=== PATIENT | male | born 1965 | race Caucasian/White ===

== ENCOUNTER 2019-10-18 16:22 | Observation (INO) | payer BC, OTHER ==
--- NOTE | 2019-10-18 17:18 | ER ---
Nurse's Notes [facility] Name: Paras Andersen Age: 54 yrs Sex: Male : 1965 Arrival Date: 10/18/2019 Time: 16:23 Bed 16 Private MD: Diagnosis: Other chest pain;Essential (primary) hypertension;Obesity, unspecified Presentation: 10/18 16:32 Presenting complaint: Patient states: chest pressure, dizziness, and feeling aa5 lightheaded that began just RELAY CHECKER. Pt also reports SOB, denies cough. Transition of care: patient was not received from another setting of care. Onset of symptoms was October 2019. Risk Assessment: Do you want to hurt yourself or someone else? Patient reports no desire to harm self or others. Initial Sepsis Screen: Does the patient meet any 2 criteria? RR > 20 per min. HR > 90 bpm. Does the patient have a suspected source of infection? No. Patient's initial sepsis screen is negative. Care prior to arrival: None. 16:32 Acuity: DENIS 2 aa5 16:32 Method Of Arrival: Ambulatory aa5 Historical: - Allergies: 16:33 No Known Allergies; aa5 - Home Meds: 16:33 Zoloft Oral for Anxiety [Active]; aa5 - PMHx: 16:33 Anxiety; aa5 - PSHx: 16:33 None; aa5 - Immunization history:: Adult Immunizations up to date. - Ebola Screening: : No symptoms or risks identified at this time. - Family history:: not pertinent. - Social history:: Smoking status: Patient/guardian denies using tobacco. Screenin:40 Abuse screen: Denies threats or abuse. Nutritional screening: No deficits noted. rb1 Tuberculosis screening: No symptoms or risk factors identified. Fall Risk None identified. Assessment: 16:40 General: Appears in no apparent distress. comfortable, Behavior is calm, cooperative, rb1 Denies fever. Pain: Complains of pain in chest Pain does not radiate. Pain currently is 4 out of 10 on a pain scale. Quality of pain is described as pressure. Neuro: Level of Consciousness is awake, alert, obeys commands, Oriented to person, place, time, situation. Neuro: Reports dizziness. Cardiovascular: Capillary refill < 3 seconds is brisk in bilateral fingers. Respiratory: Reports shortness of breath Airway is patent Respiratory effort is even, unlabored, Respiratory pattern is regular, symmetrical, Denies cough. GI: No signs and/or symptoms were reported involving the gastrointestinal system. : No signs and/or symptoms were reported regarding the genitourinary system. Derm: Skin is pink, warm \T\ dry. 17:40 Reassessment: Patient appears in no apparent distress at this time. Patient and/or rb1 family updated on plan of care and expected duration. Pain level reassessed. Patient is alert, oriented x 3, equal unlabored respirations, skin warm/dry/pink. 18:30 Reassessment: Patient appears in no apparent distress at this time. Patient and/or rb1 family updated on plan of care and expected duration. Pain level reassessed. Patient is alert, oriented x 3, equal unlabored respirations, skin warm/dry/pink. Patient states feeling better. 19:30 Pain: Pain began gradually. 20:00 Reassessment: Patient appears in no apparent distress at this time. Patient and/or wh family updated on plan of care and expected duration. Pain level reassessed. Patient is alert, oriented x 3, equal unlabored respirations, skin warm/dry/pink. Patient denies pain at this time. Patient states feeling better. Patient states symptoms have improved. Vital Signs: 16:33 BP 198 / 114; Pulse 118; Resp 24 S; Temp 98.5(O); Pulse Ox 98% on R/A; aa5 17:30 BP 177 / 77; Pulse 100; Resp 21; Pulse Ox 96% ; Pain 4/10; rb1 18:30 BP 139 / 89; Pulse 82; Resp 15; Pulse Ox 98% ; rb1 20:00 BP 119 / 79; Pulse 70; Resp 18; Pulse Ox 99% on R/A; ED Course: 16:23 Patient arrived in ED. as 16:32 Arm band placed on. aa5 16:40 Patient maintains SpO2 saturation greater than 95% on room air. rb1 16:40 Patient has correct armband on for positive identification. Bed in low position. Call rb1 light in reach. Side rails up X 1. surveillance monitor on. Pulse ox on. NIBP on. Warm blanket given. Pillow given. 16:45 EKG done, by ED staff, reviewed by Jey Hernandez MD. aa5 16:49 Triage completed. aa5 17:00 Jey Hernandez MD is Attending Physician. tristan 17:17 Ritesh August MD is Hospitalizing Provider. [facility] 17:17 Alcira Jerez, RN is Primary Nurse. rb1 17:30 Initial lab(s) drawn, by me, sent to lab. Inserted saline lock: 22 gauge in left kj1 antecubital area, using aseptic technique. Blood collected. 17:43 XRAY Chest (1 view) In Process Unspecified. EDMS 20:29 No provider procedures requiring assistance completed. Patient admitted, IV remains in place. Administered Medications: 17:40 Drug: NS 0.9% 1000 ml Route: IV; Rate: 75 ml/hr; Site: left antecubital; rb1 20:31 Follow up: Response: No adverse reaction; IV Status: Infusion continued upon admission 17:45 Drug: Lopressor (metoprolol TARTRATE) 50 mg Route: PO; rb1 20:34 Follow up: Response: No adverse reaction 17:45 Drug: Aspirin Chewable Tablet 324 mg Route: PO; rb1 20:33 Follow up: Response: No adverse reaction 17:45 Drug: morphine 4 mg Route: IVP; Site: left antecubital; rb1 20:33 Follow up: Response: No adverse reaction 17:45 Drug: Zofran 4 mg Route: IVP; Site: left antecubital; rb1 20:32 Follow up: Response: No adverse reaction; Nausea is decreased 17:50 Drug: Lopressor 5 mg {Note: BP 177/77 P 98.} Route: IVP; Site: left antecubital; rb1 20:31 Follow up: Response: No adverse reaction; Blood pressure is lowered 19:37 Drug: Lisinopril 20 mg {Note: HR 77 BP 140/84.} Route: PO; wh 20:31 Follow up: Response: No adverse reaction; Marked relief of symptoms 20:10 Not Given (BP 119/79 HR 70): Lopressor 5 mg IVP once; Hold for SBP <100 or HR <60. Outcome: 17:17 Decision to Hospitalize by Provider. tristan 20:29 Admitted to [facility] accompanied by nurse, via wheelchair, room 421, Report called to Rivka Diamond RN 20:29 Condition: stable 20:29 Instructed on the need for admit. 20:34 Patient left the ED. Signatures: Dispatcher [employer] EDJey Clark MD MD cha Martinez, Amelia as Jennifer Castaneda RN RN aa5 Alcira Jerez, ANA RN [facility] Fariha Vasquez César Ortadis kj1 Corrections: (The following items were deleted from the chart) 16:50 16:45 Presenting complaint: Patient states: chest pressure, dizziness, and feeling aa5 lightheaded that began just RELAY CHECKER. Pt also reports SOB, denies cough. aa5 16:50 16:45 Risk Assessment: Do you want to hurt yourself or someone else? Patient reports no aa5 desire to harm self or others. aa :50 16:45 Initial Sepsis Screen: Does the patient meet any 2 criteria? RR > 20 per min. HR aa5 > 90 bpm. Does the patient have a suspected source of infection? No. Patient's initial sepsis screen is negative. aa :50 16:45 Care prior to arrival: None. aa aa 16:50 16:45 Onset of symptoms was October [facility] 16:50 16:45 Transition of care: patient was not received from another setting of care. aa aa 16:50 16:45 Acuity: DENIS 2 aa5 aa 16:50 16:45 Method Of Arrival: Ambulatory [place] [id number]
--- NOTE | 2019-10-18 17:19 | EDPHYS ---
Physician Documentation [facility] Name: Paras Andersen Age: 54 yrs Sex: Male : 1965 Arrival Date: 10/18/2019 Time: 16:23 Bed 16 Private MD: ED Physician Jey Hernandez HPI: 10/18 17:14 This 54 yrs old Male presents to ER via Ambulatory with complaints of Chest tristan Pressure, Dizziness. 17:14 The patient or guardian reports chest pain that is located primarily in the substernal tristan area, anterior chest wall, bilaterally. Onset: 1 day(s) ago. The pain radiates to Associated signs and symptoms: The patient has no apparent associated signs or symptoms. The chest pain is described as a heaviness. Duration: The patient or guardian reports a single episode. Modifying factors: The symptoms are alleviated by nothing. the symptoms are aggravated by nothing. Severity of pain: At its worst the pain was mild in the emergency department the pain has resolved. Historical: - Allergies: 16:33 No Known Allergies; aa5 - Home Meds: 16:33 Zoloft Oral for Anxiety [Active]; aa5 - PMHx: 16:33 Anxiety; aa5 - PSHx: 16:33 None; aa5 - Immunization history:: Adult Immunizations up to date. - Ebola Screening: : No symptoms or risks identified at this time. - Family history:: not pertinent. - Social history:: Smoking status: Patient/guardian denies using tobacco. ROS: 17:14 Constitutional: Negative for fever, chills, and weight loss, Eyes: Negative for injury, tristan pain, redness, and discharge, ENT: Negative for injury, pain, and discharge, Neck: Negative for injury, pain, and swelling, Respiratory: Negative for shortness of breath, cough, wheezing, and pleuritic chest pain, Abdomen/GI: Negative for abdominal pain, nausea, vomiting, diarrhea, and constipation, Back: Negative for injury and pain, : Negative for injury, bleeding, discharge, and swelling, MS/Extremity: Negative for injury and deformity, Skin: Negative for injury, rash, and discoloration, Neuro: Negative for headache, weakness, numbness, tingling, and seizure, Psych: Negative for depression, anxiety, suicide ideation, homicidal ideation, and hallucinations, Allergy/Immunology: Negative for hives, rash, and allergies, Endocrine: Negative for neck swelling, polydipsia, polyuria, polyphagia, and marked weight changes, Hematologic/Lymphatic: Negative for swollen nodes, abnormal bleeding, and unusual bruising. 17:14 Cardiovascular: Positive for chest pain. Exam: 17:14 Constitutional: This is a well developed, well nourished patient who is awake, alert, tristan and in no acute distress. Head/Face: Normocephalic, atraumatic. Eyes: Pupils equal round and reactive to light, extra-ocular motions intact. Lids and lashes normal. Conjunctiva and sclera are non-icteric and not injected. Cornea within normal limits. Periorbital areas with no swelling, redness, or edema. ENT: Nares patent. No nasal discharge, no septal abnormalities noted. Tympanic membranes are normal and external auditory canals are clear. Oropharynx with no redness, swelling, or masses, exudates, or evidence of obstruction, uvula midline. Mucous membranes moist. Neck: Trachea midline, no thyromegaly or masses palpated, and no cervical lymphadenopathy. Supple, full range of motion without nuchal rigidity, or vertebral point tenderness. No Meningismus. Chest/axilla: Normal chest wall appearance and motion. Nontender with no deformity. No lesions are appreciated. Cardiovascular: Regular rate and rhythm with a normal S1 and S2. No gallops, murmurs, or rubs. Normal PMI, no JVD. No pulse deficits. Respiratory: Lungs have equal breath sounds bilaterally, clear to auscultation and percussion. No rales, rhonchi or wheezes noted. No increased work of breathing, no retractions or nasal flaring. Abdomen/GI: Soft, non-tender, with normal bowel sounds. No distension or tympany. No guarding or rebound. No evidence of tenderness throughout. Back: No spinal tenderness. No costovertebral tenderness. Full range of motion. Skin: Warm, dry with normal turgor. Normal color with no rashes, no lesions, and no evidence of cellulitis. MS/ Extremity: Pulses equal, no cyanosis. Neurovascular intact. Full, normal range of motion. Neuro: Awake and alert, GCS 15, oriented to person, place, time, and situation. Cranial nerves II-XII grossly intact. Motor strength 5/5 in all extremities. Sensory grossly intact. Cerebellar exam normal. Normal gait. Psych: Awake, alert, with orientation to person, place and time. Behavior, mood, and affect are within normal limits. 17:14 Musculoskeletal/extremity: Extremities: all appear grossly normal, with no appreciated pain with palpation, ROM: no acute changes, Circulation is intact in all extremities. Sensation intact. DVT Exam: No signs of deep vein thrombosis. no pain, no swelling, no tenderness, negative Homans' sign noted on exam, no appreciated bluish discoloration, no erythema, no increased warmth. Vital Signs: 16:33 BP 198 / 114; Pulse 118; Resp 24 S; Temp 98.5(O); Pulse Ox 98% on R/A; aa5 17:30 BP 177 / 77; Pulse 100; Resp 21; Pulse Ox 96% ; Pain 4/10; rb1 18:30 BP 139 / 89; Pulse 82; Resp 15; Pulse Ox 98% ; rb1 20:00 BP 119 / 79; Pulse 70; Resp 18; Pulse Ox 99% on R/A; wh MDM: 17:00 Patient medically screened. [facility] 17:16 Data reviewed: vital signs, nurses notes, lab test result(s), EKG, radiologic studies, tristan ultrasound. 10/18 17:02 Order name: Basic Metabolic Panel; Complete Time: 18:23 [facility] 10/18 17:02 Order name: CBC with Diff; Complete Time: 18:23 [facility] 10/18 17:02 Order name: LFT's; Complete Time: 18:23 [facility] 10/18 17:02 Order name: Magnesium; Complete Time: 18:23 [facility] 10/18 17:02 Order name: NT PRO-BNP; Complete Time: 18:23 [facility] 10/18 17:02 Order name: PT-INR; Complete Time: 18:23 [facility] 10/18 17:02 Order name: Troponin (emerg Dept Use Only); Complete Time: 18:23 [facility] 10/18 17:02 Order name: Lipase; Complete Time: 18:23 [facility] 10/18 18:09 Order name: CBC with Automated Diff EDMS 10/18 18:09 Order name: CBC with Automated Diff EDMS 10/18 18:09 Order name: CKMB Creatine Kinase MB EDMS 10/18 18:09 Order name: CKMB Creatine Kinase MB EDMS 10/18 18:09 Order name: CKMB Creatine Kinase MB EDCT 10/18 18:09 Order name: CKMB Creatine Kinase MB EDCT 10/18 17:02 Order name: XRAY Chest (1 view); Complete Time: 18:23 [facility] 10/18 18:10 Order name: Comprehensive Metabolic Panel EDCT 10/18 18:10 Order name: Comprehensive Metabolic Panel EDCT 10/18 18:10 Order name: Creatine Phosphokinase EDCT 10/18 18:10 Order name: Creatine Phosphokinase EDCT 10/18 18:10 Order name: Creatine Phosphokinase EDCT 10/18 18:10 Order name: Creatine Phosphokinase EDCT 10/18 18:10 Order name: Lipid Profile EDCT 10/18 18:10 Order name: Lipid Profile EDCT 10/18 18:10 Order name: Troponin I EDCT 10/18 18:10 Order name: Troponin I EDCT 10/18 18:10 Order name: Troponin I EDCT 10/18 18:14 Order name: D-Dimer; Complete Time: 18:23 [facility] 10/18 17:02 Order name: EKG; Complete Time: 17:03 [facility] 10/18 17:02 Order name: Cardiac monitoring; Complete Time: 17:21 [facility] 10/18 17:02 Order name: EKG - Nurse/Tech; Complete Time: 17:21 [facility] 10/18 17:02 Order name: IV Saline Lock; Complete Time: 17:33 [facility] 10/18 17:02 Order name: Labs collected and sent; Complete Time: 17:33 [facility] 10/18 17:02 Order name: O2 Per Protocol; Complete Time: 17:21 [facility] 10/18 17:02 Order name: O2 Sat Monitoring; Complete Time: 17:21 [facility] 10/18 18:09 Order name: CONS Pharmacy Consult EDCT 10/18 18:09 Order name: Heart Healthy EDCT 10/18 18:09 Order name: EKG Electrocardiogram EDCT 10/18 18:09 Order name: EKG Electrocardiogram EDCT Administered Medications: 17:40 Drug: NS 0.9% 1000 ml Route: IV; Rate: 75 ml/hr; Site: left antecubital; rb1 20:31 Follow up: Response: No adverse reaction; IV Status: Infusion continued upon admission wh 17:45 Drug: Lopressor (metoprolol TARTRATE) 50 mg Route: PO; rb1 20:34 Follow up: Response: No adverse reaction wh 17:45 Drug: Aspirin Chewable Tablet 324 mg Route: PO; rb1 20:33 Follow up: Response: No adverse reaction wh 17:45 Drug: morphine 4 mg Route: IVP; Site: left antecubital; rb1 20:33 Follow up: Response: No adverse reaction wh 17:45 Drug: Zofran 4 mg Route: IVP; Site: left antecubital; rb1 20:32 Follow up: Response: No adverse reaction; Nausea is decreased wh 17:50 Drug: Lopressor 5 mg {Note: BP 177/77 P 98.} Route: IVP; Site: left antecubital; rb1 20:31 Follow up: Response: No adverse reaction; Blood pressure is lowered wh 19:37 Drug: Lisinopril 20 mg {Note: HR 77 BP 140/84.} Route: PO; wh 20:31 Follow up: Response: No adverse reaction; Marked relief of symptoms 20:10 Not Given (BP 119/79 HR 70): Lopressor 5 mg IVP once; Hold for SBP <100 or HR <60. Disposition: 10/18/19 17:17 Hospitalization ordered by Ritesh August for Observation. Preliminary diagnosis are Other chest pain, Essential (primary) hypertension, Obesity, unspecified. - Bed requested for Telemetry/MedSurg (observation). - Status is Observation. - Condition is Fair. - Problem is new. - Symptoms have improved. UTI on Admission? No Signatures: Dispatcher [employer] EDCT Jey Hernandez MD MD cha Martinez, Eric em1 Jennifer Castaneda RN RN aa5 Alcira Jerez RN RN rb1 Fariha Vasquez Corrections: (The following items were deleted from the chart) 18:14 18:12 D-Dimer ordered. [facility] EDCT 18:30 17:17 Hospitalization Ordered by Ritesh August MD for Observation. Preliminary em1 diagnosis is Other chest pain; Essential (primary) hypertension; Obesity, unspecified. Bed requested for Telemetry/MedSurg (observation). Status is Observation. Condition is Fair. Problem is new. Symptoms have improved. UTI on Admission? No. tristan 20:34 18:30 10/18/2019 17:17 Hospitalization Ordered by Ritesh August MD for Observation. Preliminary diagnosis is Other chest pain; Essential (primary) hypertension; Obesity, unspecified. Bed requested for Telemetry/MedSurg (observation). Status is Observation. Condition is Fair. Problem is new. Symptoms have improved. UTI on Admission? No. em1
[2019-10-18] MEDS ORDERED: METOPROLOL TAR 50 MG TAB ONE (17:24)
[2019-10-18] MEDS ORDERED: ASPIRIN 81 MG CHEWABLE TABLET ONE (17:24)
[2019-10-18] MEDS ORDERED: NA CHLORIDE 0.9% 0 ML ONE (17:25)
[2019-10-18] MEDS ORDERED: METOPROLOL TARTRATE 5 MG/5 ML INJ IV ONE (17:25)
[2019-10-18] MEDS ORDERED: MORPHINE 4 MG/ML SYR ONE (17:25)
[2019-10-18] MEDS ORDERED: ONDANSETRON 4 MG/2 ML VIAL ONE (17:25)
[2019-10-18 17:41] LABS: Absolute Lymphocytes (CBC) 2.1 K/uL (0.7-4.9); Basophils % 0.9 % (0-1.3); Hematocrit 46.9 % (39.6-49.0); Lymphocytes % 14.3 % (15.3-44.8); MPV 8.8 fL (7.6-11.3); RBC Red Blood Cell Count 5.02 M/uL (4.33-5.43)
[2019-10-18 17:42] LABS: Protime INR 1.22
--- NOTE | 2019-10-18 17:50 | RAD REPORT ---
EXAM DESCRIPTION: RAD - Chest Single View - 10/18/2019 5:43 pm CLINICAL HISTORY: Chest pain and pressure, dizziness, shortness of breath and hypertension COMPARISON: October 27 TECHNIQUE: AP portable chest image was obtained 1731 hours . FINDINGS: No acute lung parenchymal process. Heart and vasculature are normal. No measurable pleural effusion and no pneumothorax. No acute bony abnormality seen. No acute aortic findings suspected. IMPRESSION: No acute cardiopulmonary process. No significant change from comparison.
[2019-10-18 18:00] LABS: ALT/SGPT 64 U/L (12-78); AST/SGOT 36 U/L (15-37); Albumin 4.2 g/dL (3.4-5.0); Alkaline Phosphatase 85 U/L (45-117); BUN Blood Urea Nitrogen 12 mg/dL (7-18); Bicarbonate 28 mmol/L (21-32); Bilirubin Direct 0.1 mg/dL (0-0.2); Bilirubin Total 0.3 mg/dL (0.2-1.0); Glucose Level 144 mg/dL (74-106); Lipase 157 U/L (73-393); Magnesium 2.2 mg/dL (1.8-2.4); NT PRO-BNP 47 pg/mL (<125); Potassium 3.7 mmol/L (3.5-5.1); Protein, Total 7.9 g/dL (6.4-8.2); Sodium Level 138 mmol/L (136-145); Troponin (Emerg Dept Use Only) < 0.02 ng/mL (0.0-0.045)
[2019-10-18] MEDS ORDERED: ONDANSETRON 4 MG/2 ML VIAL IV PRN (18:04)
[2019-10-18] MEDS ORDERED: MORPHINE 2 MG/ML SYR IV PRN (18:04)
[2019-10-18] MEDS ORDERED: ACETAMINOPHEN 500 MG TAB PO PRN (18:04)
[2019-10-18] MEDS ORDERED: HYDRALAZINE HCL 20 MG/ML VIAL IV PRN (18:08)
--- NOTE | 2019-10-18 18:15 | P.HP ---
Certification for Inpatient Patient admitted to: Observation With expected LOS: <2 Midnights Patient will require the following post-hospital care: None Practitioner: I am a practitioner with admitting privileges, knowledge of patient current condition, hospital course, and medical plan of care. Services: Services provided to patient in accordance with Admission requirements found in Title 42 Section 412.3 of the Code of Federal Regulations Patient History Date of Service: 10/18/19 Reason for admission: Chest pain History of Present Illness: 54-year-old male with no significant past medical history came to ER with chest pain which started today afternoon. The pain is retrosternal radiating to the back, right now it is 3/10 in severity, pressure-like. he also feels about a burning sensation in the epigastric region, had similar episodes in the past while at work. Not associated with any nausea vomiting. No diaphoresis. Patient was assessed in the ER and was found to have high blood pressure and chest discomfort. He also has a family history of CAD. Former smoker . In view of the those factors he was admitted for chest pain to rule out ACS Allergies No Known Allergies Allergy (Unverified 10/28/13 00:51) Home medications list reviewed: Yes Home Medications: NK [No Home Meds] 10/28/13 - Past Medical/Surgical History Diabetic: No Past Medical History: Reviewed- Non-Contributory Past Surgical History: Reviewed- Non-Contributory -: R hand sx 1991 - Family History Family History: Reviewed- Non-Contributory - Social History Smoking Status: Former smoker Alcohol use: No CD- Drugs: No Caffeine use: Yes Review of Systems 10-point ROS is otherwise unremarkable Physical Examination - Vital Signs Temperature: 98 F Blood Pressure: 177/76 Pulse: 79 Respirations: 22 - Physical Exam General: Alert, In no apparent distress, Oriented x3, Obese HEENT: Atraumatic, Normocephalic Neck: Supple, 2+ carotid pulse no bruit Respiratory: Clear to auscultation bilaterally, Normal air movement Cardiovascular: Regular rate/rhythm, Normal S1 S2 Capillary refill: <2 Seconds Gastrointestinal: Soft and benign, Non-distended, W/out hepatosplenomegaly, Tenderness (Epigastric tenderness) Musculoskeletal: No clubbing, No swelling Integumentary: No rashes Neurological: Normal speech, Normal strength at 5/5 x4 extr Lymphatics: No axilla or inguinal lymphadenopathy Urinary: Other (No bladder distention) External genitalia: Deferred Rectal: Deferred - Studies Laboratory Data (last 24 hrs) 10/18/19 17:30: PT 14.3 H, INR 1.22 10/18/19 17:30: WBC 15.1 H, Hgb 16.1, Hct 46.9, Plt Count 251 10/18/19 17:30: Sodium 138, Potassium 3.7, BUN 12, Creatinine 0.90, Glucose 144 H, Magnesium 2.2, Total Bilirubin 0.3, AST 36, ALT 64, Alkaline Phosphatase 85, Lipase 157 Assessment and Plan - Problems (Diagnosis) (1) Chest pain, rule out acute myocardial infarction Current Visit: Yes Status: Acute Plan: Will monitor under telemetry trend cardiac enzymes Will get an EKG in a.m. will get a D-dimer If D-dimer is elevated will get a CT chest PE protocol Will consider cardiology consult in a.m. (2) High blood pressure Current Visit: Yes Status: Acute Plan: Denies any history of hypertension Start on beta nikky and hydralazine p.r.n. Monitor under telemetry (3) Obesity Current Visit: Yes Status: Chronic Plan: Advised lifestyle modification Will get an A1c and a lipid panel in a.m. Discharge Plan: Home - Advance Directives Does patient have a Living Will: No Does patient have a Durable POA for Healthcare: No Time Spent Managing Pts Care (In Minutes): 45
[2019-10-18] MEDS ORDERED: NA CHLORIDE 0.9% 1,000 ML ONE (19:06)
[2019-10-18] MEDS ORDERED: lisinopriL 20 MG TAB ONE (19:32)
[2019-10-18] MEDS: PANTOPRAZOLE 40MG TABLET PO SCH (20:48)
[2019-10-18] MEDS ORDERED: METOPROLOL XL 25 MG TAB PO SCH (21:00)
[2019-10-18 21:34] LABS: CKMB Creatine Kinase MB 1.5 ng/mL (0.3-3.6); Creatine Phosphokinase 124 U/L (39-308); Troponin I < 0.02 ng/mL (0.0-0.045)
[2019-10-18 22:27] VITALS: BMI 46.3
[2019-10-18 23:42] LABS: Urine Appearance CLEAR; Urine Bilirubin NEGATIVE (NEG); Urine Blood NEGATIVE (NEG); Urine Color YELLOW; Urine Glucose NEGATIVE (NEG); Urine Microscopic Reflex NO UMIC; Urine Protein NEGATIVE (NEG); Urine Specific Gravity 1.025 (1.005-1.030); Urine Urobilinogen 0.2 mg/dL (0.2-1.0); Urine pH 5.5 (5.0-7.0)
[2019-10-19 01:31] LABS: CKMB Creatine Kinase MB 1.3 ng/mL (0.3-3.6)
[2019-10-19 05:03] LABS: Absolute Lymphocytes (CBC) 2.6 K/uL (0.7-4.9); Hematocrit 47.5 % (39.6-49.0); Lymphocytes % 21.6 % (15.3-44.8); RBC Red Blood Cell Count 4.94 M/uL (4.33-5.43)
[2019-10-19 05:35] LABS: ALT/SGPT 59 U/L (12-78); AST/SGOT 32 U/L (15-37); Albumin 3.7 g/dL (3.4-5.0); Alkaline Phosphatase 74 U/L (45-117); BUN Blood Urea Nitrogen 12 mg/dL (7-18); Bicarbonate 31 mmol/L (21-32); Bilirubin Total 0.7 mg/dL (0.2-1.0); Glucose Level 99 mg/dL (74-106); HDL Cholesterol 47 mg/dL (40-60); LDL Cholesterol, Calculated 91 (<130); Potassium 4.8 mmol/L (3.5-5.1); Protein, Total 7.2 g/dL (6.4-8.2); Sodium Level 142 mmol/L (136-145)
--- NOTE | 2019-10-19 07:07 | EKG ---
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
[2019-10-19] MEDS: PANTOPRAZOLE 40MG TABLET PO SCH (07:57)
[2019-10-19 08:19] VITALS: BP 139/80; TEMP 97.4
--- NOTE | 2019-10-19 08:23 | P.DS ---
Admission Date: 10/18/19 Discharge Date: 10/19/19 Disposition: ROUTINE DISCHARGE Discharge Condition: GOOD Reason for Admission: Chest pain - Problems (1) Chest pain, rule out acute myocardial infarction Status: Acute (2) High blood pressure Status: Acute (3) Obesity Status: Chronic Brief History of Present Illness: 54-year-old male with no significant past medical history came to ER with chest pain which started today afternoon. The pain is retrosternal radiating to the back, right now it is 3/10 in severity, pressure-like. he also feels about a burning sensation in the epigastric region, had similar episodes in the past while at work. Not associated with any nausea vomiting. No diaphoresis. Patient was assessed in the ER and was found to have high blood pressure and chest discomfort. He also has a family history of CAD. Former smoker . In view of the those factors he was admitted for chest pain to rule out ACS Hospital Course: He was admitted was monitor under telemetry. Trended cardiac enzymes which were within normal limits. he had not complained of any more chest pain. Patient seen Dr. Diehl before and had an stress test previously, which was normal according to the patient. He was also started on PPI for possible GERD. His blood pressure was found to be high and was started on beta-nikky. he was chest pain-free and wanted to go home, he has been discharged home today in a stable condition with advice to follow up with PCP in 1 week and also with Dr. Diehl in 1-2 weeks Vital Signs/Physical Exam: Temp Pulse Resp BP Pulse Ox 97.4 F 72 18 139/80 96 10/19/19 08:00 10/19/19 08:00 10/19/19 08:00 10/19/19 08:00 10/19/19 08:00 General: Alert, In no apparent distress, Obese HEENT: Atraumatic, Normocephalic Neck: Supple Respiratory: Clear to auscultation bilaterally, Normal air movement Cardiovascular: Normal pulses, Regular rate/rhythm Capillary refill: <2 Seconds Gastrointestinal: Soft and benign, W/out hepatosplenomegaly Musculoskeletal: No clubbing Integumentary: No rashes Neurological: Normal speech, Normal strength at 5/5 x4 extr Lymphatics: No axilla or inguinal lymphadenopathy Laboratory Data at Discharge: WBC 11.9 K/uL (4.3-10.9) H D 10/19/19 04:48 Hgb 15.7 g/dL (13.6-17.9) 10/19/19 04:48 Hct 47.5 % (39.6-49.0) 10/19/19 04:48 Plt Count 213 K/uL (152-406) 10/19/19 04:48 PT 14.3 SECONDS (9.5-12.5) H 10/18/19 17:30 INR 1.22 10/18/19 17:30 Sodium 142 mmol/L (136-145) 10/19/19 04:48 Potassium 4.8 mmol/L (3.5-5.1) 10/19/19 04:48 BUN 12 mg/dL (7-18) 10/19/19 04:48 Creatinine 0.83 mg/dL (0.55-1.3) 10/19/19 04:48 Glucose 99 mg/dL (74-106) 10/19/19 04:48 Magnesium 2.2 mg/dL (1.8-2.4) 10/18/19 17:30 Total Bilirubin 0.7 mg/dL (0.2-1.0) 10/19/19 04:48 AST 32 U/L (15-37) 10/19/19 04:48 ALT 59 U/L (12-78) 10/19/19 04:48 Alkaline Phosphatase 74 U/L (45-117) 10/19/19 04:48 Troponin I < 0.02 ng/mL (0.0-0.045) 10/19/19 00:37 Triglycerides 77 mg/dL (<150) 10/19/19 04:48 Cholesterol 153 mg/dL (<200) 10/19/19 04:48 HDL Cholesterol 47 mg/dL (40-60) 10/19/19 04:48 Cholesterol/HDL Ratio 3.26 10/19/19 04:48 Lipase 157 U/L (73-393) 10/18/19 17:30 Home Medications: Sertraline [Zoloft] 100 mg PO DAILY 10/18/19 Metoprolol Succinate [Toprol Xl*] 25 mg PO DAILY #30 tab 10/19/19 Pantoprazole [Protonix Tab*] 40 mg PO DAILY #30 tab 11/18/19 New Medications: Metoprolol Succinate [Toprol Xl*] 25 mg PO DAILY #30 tab Pantoprazole [Protonix Tab*] 40 mg PO DAILY #30 tab Diet: AHA Activity: Ad horacio Followup: Nehemiah Tobias DO, DO [Primary Care Provider] - (call to schedule appointment ) Octaviano Diehl MD [ACTIVE - CAN ADMIT] - 1 Week (call to schedule appointment) Time spent managing pt's care (in minutes): 36
[2019-10-19] MEDS ORDERED: ASPIRIN EC 81 MG TAB PO SCH (09:00)
[2019-10-19 09:12] VITALS: O2SAT 93
--- NOTE | 2019-10-19 10:23 | EKG ---
Test Date: 2019-10-19 Test Time: 07:28:51 Fire Operations Forester: ROMA MEASUREMENT RESULTS: Intervals: Rate: 69 OR: 158 QRSD: 88 QT: 404 QTc: 432 [place]: P: 65 OR: 158 QRS: 61 T: 30 INTERPRETIVE STATEMENTS: Normal sinus rhythm Normal ECG Compared to ECG 10/18/2019 16:45:00 Sinus tachycardia no longer present Ventricular premature complex(es) no longer present Electronically Signed On 10-19-19 10:22:07 PLAY READER by Octaviano Diehl
[2019-10-19] MEDS ORDERED: ENOXAPARIN 40 MG/0.4 ML SQ SCH (17:00)
== END 2019-10-19 09:20 | disposition home or self-care (01) ==
LOC: ER 16:22 → ERHOLD 18:05 → 4TH 20:10
PROVIDERS: ADMIT Family Medicine; ATTEND Family Medicine
DX: R07.9 Chest pain, unspecified (principal); R03.0 Elevated blood-pressure reading, without diagnosis of hypertension; E66.9 Obesity, unspecified; Z68.42 Body mass index [BMI] 45.0-49.9, adult
CPT/HCPCS: 36415; 71045; 80048; 80053; 80061; 80076; 81003; 82550; 82553; 83690; 83735; 83880; 84484; 85025; 85379; 85610; 93005; 96361; 96374; 96375; 99285; G0378; J2405; J7030

== ENCOUNTER 2019-12-09 08:21 | Day surgery (SDC) | payer OTHER ==
[2019-12-07 12:28] LABS: Absolute Lymphocytes (CBC) 1.7 K/uL (0.7-4.9); Basophils % 0.6 % (0-1.3); Hematocrit 44.2 % (39.6-49.0); Lymphocytes % 16.3 % (15.3-44.8); MPV 9.4 fL (7.6-11.3); RBC Red Blood Cell Count 4.74 M/uL (4.33-5.43)
[2019-12-07 12:33] LABS: Protime INR 1.1
[2019-12-07 12:42] LABS: BUN Blood Urea Nitrogen 13 mg/dL (7-18); Bicarbonate 30 mmol/L (21-32); Glucose Level 92 mg/dL (74-106); Potassium 4.2 mmol/L (3.5-5.1); Sodium Level 142 mmol/L (136-145)
--- NOTE | 2019-12-08 16:42 | EKG ---
Test Date: 2018-12-07 Test Time: 11:31:47 Shrimp Cleaner: ROMA MEASUREMENT RESULTS: Intervals: Rate: 76 TX: 144 QRSD: 90 QT: 378 QTc: 425 [place]: P: 61 TX: 144 QRS: 44 T: 11 INTERPRETIVE STATEMENTS: Normal sinus rhythm Normal ECG Cardioserver Error - Incorrect date on EKG This EKG was performed on 12-07-2019 Compared to ECG 10/28/2013 07:37:06 T-wave abnormality no longer present Electronically Signed On 12-08-19 16:41:01 WELDER TOOL AND DIE by Noe De Souza
[2019-12-09] MEDS ORDERED: NA CHLORIDE 0.9% 500 ML ONE (08:29)
[2019-12-09 08:55] VITALS: TEMP 97
[2019-12-09] MEDS ORDERED: HEPA 1000U/500MLS 2,000 UNIT/1,000 ML BAG IV ONE (09:08)
[2019-12-09] MEDS ORDERED: HEPARIN 5000 UNIT/ML 1 ML VIAL ONE (09:35)
[2019-12-09] MEDS ORDERED: MIDAZOLAM HCL 2 MG/2 ML INJ ONE (09:35)
[2019-12-09] MEDS ORDERED: FENTANYL CITR 100 MCG/2 ML ONE (09:35)
[2019-12-09] MEDS ORDERED: ATROPINE SULF 1 MG/10 ML SYR IV ONE (09:36)
[2019-12-09] MEDS ORDERED: NITROGLYCERIN 100 MCG/ML SYR (for cath lab use only) IV ONE (09:36)
[2019-12-09] MEDS ORDERED: NICARDIPINE HCL 25 MG/10 ML IV ONE (09:36)
[2019-12-09] MEDS ORDERED: NA CHLORIDE 0.9% 0 ML ONE (09:36)
[2019-12-09 11:59] VITALS: BP 117/72; O2SAT 96
--- NOTE | 2019-12-09 20:50 | OP ---
Surgeon: Octaviano Diehl MD Procedure: Left heart catheterization with coronary and left ventricular angiography. Indication: Abnormal Cardiolite stress test. Procedure Findings: The patient has normal coronary arteries, normal left ventricular ejection fract ion, normal left ventricular end-diastolic pressure, and all normal pressures. Recommendation is for medical therapy, control risk factors including lose weight, exercise. Procedure In Detail: The patient was brought to the cardiac wood preserving plant laborer in a fasting, sedated with Vers ed and fentanyl. Prepared and draped in usual sterile fashion. Right radial access was used. We an esthetized the tissue over the right radial artery with 1% lidocaine, entered it with a 21-gauge need le, cannulated the artery with a 0.021 inch diameter guidewire. I then placed a 5/6-[email or web address] ra dial sheath. As soon as the sheath was in, introducer and wire were removed. The sheath was flushed and radial cocktail was given consisting of nicardipine, heparin, nitroglycerin. We guided the TIG catheter into the ascending aorta using a short radius J-tip Glidewire and fluoroscopy. We angiogram right coronary, left coronary, and left ventricle all with the same catheter at the end of the proce dure when the decision was made not to do any interventions. The catheter was removed over a J-wire. The sheath was removed after it was flushed and the arteriotomy was closed with a large TR band. Estimated Blood Loss: 5 mL. Complications: None. Final Diagnoses: False-positive stress test, normal heart catheterization. Dental Laboratory Technology Teacher: Mary Antonio. SINDY/HAVEN Voice ID: [id number] Report ID: [id number]
== END 2019-12-09 12:15 | disposition home or self-care (01) ==
LOC: CCL 08:21
PROVIDERS: ATTEND Internal Medicine
PROC: 4A023N7 Measurement of Cardiac Sampling and Pressure, Left Heart, Percutaneous Approach (ICD-10-PCS; principal; 2019-12-09)
PROC: B201YZZ Plain Radiography of Multiple Coronary Arteries using Other Contrast (ICD-10-PCS; 2019-12-09)
PROC: B205YZZ Plain Radiography of Left Heart using Other Contrast (ICD-10-PCS; 2019-12-09)
DX: R94.39 Abnormal result of other cardiovascular function study (principal); I10 Essential (primary) hypertension
CPT/HCPCS: 93005; 85025; 80048; 36415; 85610; 85730; 93458; C1893; J1644; J2250; J3010; J7040; J0583